=== PATIENT | male | born 1970 | race African-American/Black ===

== ENCOUNTER 2016-10-17 16:50 | Emergency (ER) | payer OTHER, MEDICAID ==
[~2016-10-17] VITALS: Ht 170.2 cm; Wt 111.0 kg
[~2016-10-17 16:50] MED LIST: BENZ100 PO; MAGICPED SWISH-SWAL; NAPR550T3 PO
[2016-10-17 16:52] VITALS: BP 160/105; PULSE 93; RESP 20; TEMP 98.5; O2SAT 95
--- NOTE | 2016-10-17 16:56 | PD ---
Physical Exam Date Seen by Provider: October 17, 2016 Time Seen by Provider: 16:54 Narrative 45 YOBM LAC TO THE SCALP. NOT UTD VSS wating for bed asignment Data Data Last Documented VS Vital Signs Date Time Temp Pulse Resp B/P Pulse Ox O2 Delivery O2 Flow Rate FiO2 10/17/16 16:52 98.5 93 20 160/105 95 Room Air MDM Medical Record Reviewed: No Supervised Visit with BHAVYA: Javier Fong October 17, 2016 16:55
--- NOTE | 2016-10-17 17:10 | PD ---
HPI . small laceration to scalp Chief Complaint: Laceration/Skin Injury Time Seen by Provider: 17:00 Travel History International Travel<30 days: No Contact w/Intl Traveler<30days: No Traveled to known affect area: No History of Present Illness HPI 45 yr old male with hx of asthma here with c/o laceration to the scalp. Patient was at work when he accidentally hit his head on an air conditioning unit. He now has a small 0.4 cm cut to the top of his scalp. He tells me he is up-to-date on his tetanus vaccine within the last 5 years. He denies any loss of consciousness or headache. He would like to return to work today. PFSH Past Medical History Asthma: Yes Social History Alcohol Use: No Tobacco Use: No Substance Use: No Allergies-Medications (Allergen,Severity, Reaction): Coded Allergies: No Known Allergies (Unverified , 10/26/15) Reported Meds & Prescriptions Reported Meds & Active Scripts Active Naproxen Sodium DS (Naproxen Sodium) 550 Mg Tab 550 Mg PO BID Magic Mouthwash Pediatric/Adult Liq (Lidocaine/Diphenhydr/Alum/Mg/Simeth) 60 Ml Susp 10 Ml SWISH-SWAL ACHS Each 5 mL contains: Diphenydramine 4.5 mg,Viscous Lidocaine 2% 10 mg, Maalox Advanced Regular Strength 2.7 ml (Aluminum hydroxide 108 mg, Magnesium hydroxide 108 mg and Simethicone 10.8 mg) Tessalon Perles (Benzonatate) 100 Mg Cap 100-200 Mg PO TID PRN Review of Systems General / Constitutional: No: Fever Eyes: No: Visual changes HENT: No: Headaches Cardiovascular: No: Chest Pain or Discomfort Respiratory: No: Shortness of Breath Gastrointestinal: No: Abdominal Pain Genitourinary: No: Dysuria Musculoskeletal: No: Pain Skin: Positive Other (scalp laceration ), No Rash Neurologic: No: Weakness Psychiatric: No: Depression Endocrine: No: Polydipsia Hematologic/Lymphatic: No: Easy Bruising Physical Exam Narrative GENERAL: AAO x 3, no acute distress, Well-nourished, well-developed patient. SKIN: Warm and dry. No visible rashes or bruising. 0.4 cm laceration to parietal region of right side of scalp. There is also a small abrasion present. HEAD: Normocephalic and atraumatic. EYES: No scleral icterus. No injection or drainage. EOM intact, PERRLA ENT: No nasal drainage noted. Airway patent. NECK: Supple, trachea midline. No JVD. CARDIOVASCULAR: Regular rate and rhythm without murmurs, gallops, or rubs. RESPIRATORY: Breath sounds equal bilaterally. No accessory muscle use. No rhonchi or rales. GASTROINTESTINAL: Visual inspection normal EXTREMITIES: No cyanosis or edema. NEURO: CN 2-12 intact BACK: Nontender without obvious deformity. No CVA tenderness. PSYCH: AAO x 3, normal affect. Data Data Last Documented VS Vital Signs Date Time Temp Pulse Resp B/P Pulse Ox O2 Delivery O2 Flow Rate FiO2 10/17/16 16:52 98.5 93 20 160/105 95 Room Air [facility] Medical Decision Making Medical Screen Exam Complete: Yes Emergency Medical Condition: Yes Medical Record Reviewed: Yes Differential Diagnosis Scalp laceration, scalp abrasion, less likely brain injury Narrative Course 45 yr old male with hx of asthma here with c/o laceration to the scalp. Patient was at work when he accidentally hit his head on an air conditioning unit. He now has a small 0.4 cm cut to the top of his scalp. He tells me he is up-to-date on his tetanus vaccine within the last 5 years. He denies any loss of consciousness or headache. He would like to return to work today. Patient seen and examined. He has a small 0.4 cm laceration to the parietal region of his scalp. Patient has agreed to staple placement without anesthesia. 2 ariana were placed, and patient tolerated without incident. He was advised to have these removed in 7-10 days. He was told to keep area clean with soap and water and to look out for signs of infection. Patient verbalized understanding of instructions, questions were answered, and thanked me for their care. I advised them if their condition worsens, please return to the nearest emergency room for further care. Procedures Procedure Narrative LACERATION LOCATION: Right parietal scalp LENGTH: 0.4 cm NUMBER OF STITCHES/ARIANA: 2 ariana REPAIR: The area of the laceration was prepped with Betadine and sterilely draped. No anesthesia per patient. The wound was copiously irrigated and explored without evidence of foreign body, tendon injury or neurovascular injury. The wound was closed using 2 ariana. This was a single layer repair. A sterile dressing was applied. The patient was advised to keep the dressing clean and dry. Patient tolerated the procedure well. Diagnosis Primary Impression: Scalp laceration Qualified Code: S01.01XA - Scalp laceration, initial encounter Patient Instructions: General Instructions, Laceration (ED) Departure Forms: Tests/Procedures, Work Release Enter return to work date: October 17, 2016 Additional Instructions: Keep area clean and dry. Use gauze as we discussed and change 1-2 times a day. Watch for signs of infection: fever, redness, swelling, warmth, pus or drainage , red streaks around the cut, and increased pain from the area. If you received a tetanus shot, you may experience tenderness at the injection site. This is normal. Have these 2 ariana removed in the next 7-10 days. You can return to the emergency department for this. Disposition: 01 DISCHARGE HOME Condition: Stable Francie Phillips October 17, 2016 17:10
== END 2016-10-17 18:23 | disposition home or self-care (01) ==
LOC: NEPK 16:50
DX: S01.01XA Laceration without foreign body of scalp, initial encounter (principal); W22.8XXA Striking against or struck by other objects, initial encounter; J45.909 Unspecified asthma, uncomplicated
CPT/HCPCS: 12001